=== PATIENT | female | born 1990 | race African-American/Black ===

== ENCOUNTER 2022-06-20 08:14 | Inpatient (IN) ==
[2022-06-20] MEDS ORDERED: OXYTOCIN 30 UNITS/500 ML BAG IV PRN ×3 (08:56→20:21)
[2022-06-20] MEDS ORDERED: LIDOCAINE 1% LOCAL 20 ML VIAL INFIL PRN (08:56)
--- NOTE | 2022-06-20 09:02 | History & Physical Report ---
Date of Service June 20, 2022 Assessment & Plan (1) Active labor at term: Plan: 32-year-old at 38 weeks and 6 days of gestation presenting in active labor with regular contractions, Vital signs stable afebrile, GBS negative, Gestational diabetes, prescribed metformin yesterday has not started that, Plan to admit, labs, monitor, epidural for pain, anticipate , All questions were answered. (2) GDM (gestational diabetes mellitus): History of Present Illness Primary Care Provider: Caio Oliveira MD Patient is a 32-year-old G1, P0 at 38 weeks and 6 days of gestation who has been feeling contractions since yesterday but they got more painful and regular since 6 AM. She denies leakage of fluid or vaginal bleeding. She reports good movements. Her has been complicated by gestational diabetes, it has been diet- controlled but she was prescribed metformin yesterday in the office. She has not started it. GBS negative and no other medical problems. Allergies Allergy/AdvReac Type Severity Reaction Status Date / Time No Known Allergies Allergy Unverified 06/07/22 14:04 Home Medications Medication Instructions Recorded Confirmed Type prenat.vits,hannah,hgb-lbyl-bsdbz 1 tab PO DAILY 06/07/22 06/20/22 History ferrous sulfate 325 mg (65 mg 325 mg PO BID 06/20/22 06/20/22 History iron) tablet (iron) Patient History Medical History Gestational diabetes diet controlled No known health problems Surgical History No history of previous surgery Family History Other Family history of diabetes mellitus in father Social History (Updated 06/07/22 @ 14:04 by Michelle Griffith RN) Smoking Status: Never smoker Hx Alcohol Use: No Hx Substance Use: No Preferred Language: Tunisian Creole Communication Ability: Impaired Communication Tools: Language Line Grant Writer Visual Impairment: No Limitations Beliefs That Will Affect Care: None marital status: Current Living Situation: Spouse Current Living Situation Comment: lives with family 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
[2022-06-20 09:30] LABS: Hematocrit (blood only) 35.6 % (37.0-47.0); Hemoglobin 11.7 g/dl (12.0-16.0); Mean Corpuscular Hemoglobin 28.8 pg (25.0-34.0); Mean Corpuscular Hgb Conc 32.9 g/dL (32.0-36.0); Mean Corpuscular Volume 87.7 fL (80.0-100.0); Platelet Count 260 K/uL (130-400); RDW Coefficient of Variation 16.1 % (11.5-14.5); RDW Standard Deviation 51.1 fL (36.4-46.3); Red Blood Count 4.06 M/uL (4.20-5.40); White Blood Count 5.79 K/ul (4.8-10.8)
[2022-06-20 09:39] LABS: Appearance Urine Clear (Clear); Bacteria Urine Automated Negative (Negative); Bilirubin Urine Negative (Negative); Blood Urine Negative (Negative); Color Urine Yellow; Epithelial Cell Urine Auto >30 /lpf (0-5); Glucose Urine UA Negative (Negative); Ketones Urine Trace (Negative); Leukocyte Esterase Urine Negative (Negative); Nitrite Urine Negative (Negative); Protein Urine Trace (Negative); RBC Urine Automated 0-4 /hpf (0-4); Specific Gravity Urine 1.018 (1.000-1.030); Urobilinogen Urine Negative (Negative)
[2022-06-20 09:45] LABS: Albumin Globulin Ratio 1.1 (0.9-2); Albumin Level 3.2 gm/dl (3.4-5.0); BUN Creatinine Ratio 11.3 (10-20); Bilirubin,Total 0.3 mg/dl (0.2-1.0); Calcium 8.6 mg/dl (8.6-10.3); Creatinine Clr Calc Pharmacy 179.2 ml/min; Est GFR (African American) 147.7 ml/min; Est GFR (Non-African American) 127.4 ml/min; Potassium 4.1 mmol/L (3.5-5.1); Total Protein 6.2 gm/dl (6.0-8.3)
[2022-06-20] MEDS: LACTATED RINGER'S 1,000 ML IV PRN ×3 (09:46→17:02)
[2022-06-20] MEDS ORDERED: SODIUM CHLORIDE 0.9% PF INJ 10 ML VIAL ONE (10:01)
[2022-06-20] MEDS ORDERED: fentaNYL citrate PF 100 MCG/2 ML VIAL ONE (10:01)
[2022-06-20] MEDS ORDERED: BUPIVACAINE 0.25% PF 30 ML VIAL ONE (10:02)
[2022-06-20] MEDS ORDERED: fentaNYL 2MCG/ML ROPIVACAINE 1.25MG/ML 100 ML BAG EPI ONE (10:02)
[2022-06-20] MEDS ORDERED: LIDOCAINE 2%/EPINEPHRINE 1:200,000 20 ML PF ONE (10:02)
[2022-06-20] MEDS ORDERED: ePHEDrine sulfate 50 MG/ML AMP ONE (10:03)
--- NOTE | 2022-06-20 10:23 | Anesthesiology Consultation ---
Date of Service June 20, 2022 Assessment & Plan (1) Encounter for pre-operative examination: Chart Review Chart Review: Acceptable Risk for Labor Epidural History Height/Weight Height: 5 ft 6.14 in Weight: 93.44 kg Allergies Allergy/AdvReac Type Severity Reaction Status Date / Time No Known Allergies Allergy Unverified 06/07/22 14:04 Medications Home Medications Medication Instructions Recorded Confirmed Last Taken prenat.vits,hannah,mki-hhkv-brxys 1 tab PO DAILY 06/07/22 06/20/22 06/19/22 12:00 ferrous sulfate 325 mg (65 mg 325 mg PO BID 06/20/22 06/20/22 06/19/22 12:00 iron) tablet (iron) Active Medications Generic Name Dose Route Start Last Admin Trade Name Freq PRN Reason Stop Dose Admin Lactated Ringer's 1,000 mls @ 150 mls/hr 06/20/22 08:56 06/20/22 09:46 Lr IV 06/22/22 08:55 999 mls/hr .[id number] PRN Administration L&D Protocol Protocol Past Medical History Medical History Gestational diabetes diet controlled No known health problems Past Family History Family History Other Family history of diabetes mellitus in father Past Surgical History Surgical History No history of previous surgery Social History Smoking Status: Never smoker Hx Alcohol Use: No Hx Substance Use: No Physical Exam Vital Signs Last Vital Signs Temp 36.4 C L 06/20/22 08:38 Pulse 88 06/20/22 10:19 Resp 20 06/20/22 08:38 BP 147/99 H 06/20/22 10:19 Testing Laboratory Results 06/20/22 09:13 06/20/22 09:13 Urine Color Yellow 06/20/22 Unknown Urine Appearance Clear (Clear) 06/20/22 Unknown Urine pH 7.0 (4.5-7.5) 06/20/22 Unknown Ur Specific [place] 1.018 (1.000-1.030) 06/20/22 Unknown Urine Protein Trace (Negative) H 06/20/22 Unknown Urine Glucose (UA) Negative (Negative) 06/20/22 Unknown Urine Ketones Trace (Negative) H 06/20/22 Unknown Urine Nitrite Negative (Negative) 06/20/22 Unknown Ur Leukocyte Esterase Negative (Negative) 06/20/22 Unknown Urine WBC (Auto) 1-5 /hpf (0-5) 06/20/22 Unknown Urine RBC (Auto) 0-4 /hpf (0-4) 06/20/22 Unknown U Hyaline Cast (Auto) 1-5 /lpf (0-5) 06/20/22 Unknown U Epithel Cells (Auto) >30 /lpf (0-5) H 06/20/22 Unknown Urine Bacteria (Auto) Negative (Negative) 06/20/22 Unknown
[2022-06-20] MEDS ORDERED: SODIUM CHLORIDE 0.9% PF INJ 10 ML VIAL EPI STA (11:03)
[2022-06-20] MEDS ORDERED: ONDANSETRON INJ 2 MG/ML 2 ML VIAL IV PRN (11:03)
[2022-06-20] MEDS ORDERED: BUPIVACAINE 0.25% PF 30 ML VIAL EPI STA (11:03)
[2022-06-20] MEDS ORDERED: fentaNYL citrate PF 100 MCG/2 ML VIAL EPI PRN (11:03)
[2022-06-20] MEDS ORDERED: LIDOCAINE 2%/EPINEPHRINE 1:200,000 20 ML PF EPI STA (11:03)
[2022-06-20] MEDS ORDERED: NALOXONE HCL 0.4 MG/1 ML VIAL/CARP IV PRN (11:03)
[2022-06-20] MEDS ORDERED: fentaNYL citrate PF 100 MCG/2 ML VIAL EPI STA (11:03)
[2022-06-20] MEDS ORDERED: ROPIVACAINE 0.5% PF 5 MG/ML 20 ML VIAL EPI PRN (11:03)
[2022-06-20] MEDS ORDERED: SODIUM CHLORIDE 0.9% PF INJ 10 ML VIAL EPI PRN (11:03)
[2022-06-20] MEDS ORDERED: NALOXONE HCL 1 MG in SODIUM CHLORIDE 0.9% 1000ML 1,000 ML IV PRN (11:03)
[2022-06-20] MEDS ORDERED: fentaNYL 2MCG/ML ROPIVACAINE 1.25MG/ML 100 ML BAG EPI PRN (11:03)
[2022-06-20] MEDS ORDERED: ePHEDrine sulfate 50 MG/ML AMP IV PRN (11:03)
[2022-06-20] MEDS ORDERED: BUPIVACAINE 0.25% PF 30 ML VIAL EPI PRN (11:03)
[2022-06-20] MEDS ORDERED: LIDOCAINE 2% MPF LOCAL 5 ML VIAL EPI PRN (11:03)
--- NOTE | 2022-06-20 16:11 | Obstetrical Progress Note ---
Date of Service June 20, 2022 Assessment & Plan Admission and Anticipated Discharge Date Admission Date: June 20, 2022 Subjective Patient is reevaluated ( using translation line) She has epidural for pain No complaints VE; 6/ 80%/-1, bulgin bag, AROM'ed after verbal consent , clear fluid FHR categ I [place] ctxs irregular and spaced out Plan to start Oxytocin for augmentation Continue to monitor closely Results & Data Vital Signs (Past 12 Hours) Vital Signs Temp Pulse Resp BP Pulse Ox 06/20/22 16:06 99 H 100 06/20/22 16:01 96 H 100 06/20/22 15:56 101 H 100 06/20/22 15:55 97 H 135/85 06/20/22 15:51 101 H 100 06/20/22 15:46 98 H 100 06/20/22 15:41 95 H 100 06/20/22 15:40 97 H 134/89 06/20/22 15:36 100 H 99 06/20/22 15:31 99 H 99 06/20/22 15:25 99 H 132/87 99 06/20/22 15:21 98 H 99 06/20/22 15:16 104 H 99 06/20/22 15:00 16 06/20/22 15:00 16 06/20/22 15:11 99 H 98 06/20/22 15:09 105 H 130/83 06/20/22 15:06 102 H 99 06/20/22 15:01 96 H 98 06/20/22 14:56 105 H 99 06/20/22 14:54 98 H 129/83 06/20/22 14:51 103 H 98 06/20/22 14:46 99 H 98 06/20/22 14:41 96 H 98 06/20/22 14:39 99 H 127/83 06/20/22 14:35 101 H 99 06/20/22 14:31 104 H 99 06/20/22 14:26 99 H 128/82 98 06/20/22 14:21 94 H 98 06/20/22 14:16 96 H 99 06/20/22 14:11 100 H 99 06/20/22 14:10 100 H 18 130/75 06/20/22 14:06 105 H 99 06/20/22 14:01 91 H 99 06/20/22 13:56 96 H 136/83 100 05/09/23 13:51 96 H 99 06/20/22 13:46 93 H 100 06/20/22 13:41 95 H 99 06/20/22 13:39 92 H 132/84 06/20/22 13:36 91 H 100 06/20/22 13:31 107 H 100 06/20/22 13:27 101 H 135/72 06/20/22 13:26 125 H 100 06/20/22 13:21 118 H 100 06/20/22 13:16 106 H 100 06/20/22 13:11 107 H 100 06/20/22 13:10 104 H 128/73 06/20/22 13:06 107 H 100 06/20/22 13:01 104 H 99 06/20/22 12:56 97 H 100 06/20/22 12:55 96 H 123/81 06/20/22 12:51 92 H 100 06/20/22 12:46 112 H 100 06/20/22 12:41 93 H 100 06/20/22 12:39 36.8 C 95 H 20 123/71 06/20/22 12:36 95 H 99 06/20/22 12:31 86 100 06/20/22 12:26 97 H 100 06/20/22 12:21 82 100 06/20/22 12:16 88 100 06/20/22 12:11 98 H 06/20/22 12:11 101 H 136/86 100 06/20/22 12:06 80 100 06/20/22 12:01 77 100 06/20/22 11:56 81 100 06/20/22 11:52 88 132/78 90 06/20/22 11:51 79 100 06/20/22 11:46 86 06/20/22 11:46 86 130/78 100 06/20/22 11:41 100 H 06/20/22 11:41 100 H 114/75 100 06/20/22 11:36 99 H 122/72 100 06/20/22 11:31 81 119/75 100 06/20/22 11:26 110 H 06/20/22 11:26 87 123/79 100 06/20/22 11:22 87 123/74 06/20/22 11:21 91 H 100 06/20/22 11:17 100 H 113/58 L 06/20/22 11:16 96 H 100 06/20/22 11:11 98 H 111/73 100 06/20/22 11:09 85 118/72 06/20/22 11:06 91 H 100 06/20/22 11:07 95 H 115/68 06/20/22 11:05 92 H 116/71 06/20/22 11:03 80 125/73 06/20/22 11:01 87 126/73 100 06/20/22 10:59 83 125/77 06/20/22 10:57 86 125/94 06/20/22 10:56 92 H 100 06/20/22 10:51 94 H 100 06/20/22 10:48 93 H 134/93 06/20/22 10:46 99 H 100 06/20/22 10:44 90 85 L 06/20/22 10:41 84 100 06/20/22 10:36 87 100 06/20/22 08:27 20 06/20/22 08:27 36.4 C L 20 06/20/22 10:19 88 147/99 H 06/20/22 10:04 91 H 128/85 06/20/22 09:48 83 137/88 06/20/22 09:18 83 135/90 06/20/22 09:03 78 138/93 06/20/22 08:48 79 132/93 06/20/22 08:29 83 129/91 06/20/22 08:38 36.4 C L 20
[2022-06-20] MEDS ORDERED: HYDROCORTISONE ACETATE 25 MG SUPP PR PRN (20:21)
[2022-06-20] MEDS ORDERED: ACETAMINOPHEN 325 MG TAB PO PRN (20:21)
[2022-06-20] MEDS ORDERED: MEASLES, MUMPS & RUBELLA VIRUS VIAL SQ ONE (20:21)
[2022-06-20] MEDS ORDERED: bisacodyL 10 MG SUPP PR PRN (20:21)
[2022-06-20] MEDS ORDERED: DIPHTHERIA/TETANUS/PERTUSSIS 0.5mL SYR/VIAL (Age 7+yrs) IM ONE (20:21)
[2022-06-20] MEDS ORDERED: oxyCODONE/ACETAMINOPHEN 5mg/325mg TAB PO PRN (20:21)
[2022-06-20] MEDS ORDERED: BENZOCAINE 20% AER SPR 82.5 GM CAN EXT PRN (20:21)
--- NOTE | 2022-06-20 20:25 | Delivery Summary ---
Vaginal Delivery Summary Date of Service June 20, 2022 Vaginal Delivery Summary Patient was found to be fully dilated and desire to push. She pushed for about half an hour and delivered the head without difficulty. The shoulders were delivered with minimal traction, and the whole body without difficulty. The baby was handed to the mother, mouth and nose were suctioned, cord was clamped x2 and cut at 2.5-minute delay per patient request. The baby was vigorously moving and crying at that point. Then the vagina and perineum were checked for lacerations. There was a small second-degree laceration at 7 o'clock position at the hymen. It was repaired with 2-0 Vicryl in a running locked fashion bringing the mucosa together, muscles together and skin in a subcuticular fashion. Then the first-degree lacerations on both side of upper labia were repaired with 0 Vicryl on a SH needle with [id number] stitches x2. Excellent hemostasis was achieved. Placenta was delivered spontaneously as intact and complete. Uterus was explored and found to be empty and the lower segment was cleared of all clots and debris, fundus was firm and EBL was 200 mL. The mom and baby tolerated procedure well. Sponge needle instrument count was correct x2. The baby was a viable female , Apgars 8/9 and weight is pending. No complications happened and I was present during whole procedure.
--- NOTE | 2022-06-20 21:32 | Anesthesia Procedure Note ---
Date of Service June 20, 2022 Anesthesia Post Epidural Note Vital Signs Vital Signs: Temp Pulse Resp BP Pulse Ox 36.6 C 102 H 20 129/70 100 06/20/22 17:55 06/20/22 21:27 06/20/22 17:55 06/20/22 21:26 06/20/22 21:27 Pain Intensity Bilateral Abdomen: Pain Intensity: 4 Notes Mental Status: alert / awake / arousable and participated in evaluation Nausea / Vomiting: adequately controlled Pain: adequately controlled Airway Patency, RR, SpO2: stable & adequate BP & HR: stable & adequate Hydration State: stable & adequate Neuraxial Anesthesia: was administered and sensory block is resolving Anesthetic Complications: no major complications apparent Epidural: Removed without complications and With tip intact
[2022-06-20] MEDS: IBUPROFEN 600 MG TAB PO PRN (22:19)
[2022-06-21] MEDS: DOCUSATE SODIUM 100 MG CAP PO SCH ×3 (00:47→21:08)
[2022-06-21 06:23] LABS: Hematocrit (blood only) 28.8 % (37.0-47.0); Hemoglobin 9.4 g/dl (12.0-16.0); Mean Corpuscular Hemoglobin 28.7 pg (25.0-34.0); Mean Corpuscular Hgb Conc 32.6 g/dL (32.0-36.0); Mean Corpuscular Volume 87.8 fL (80.0-100.0); Mean Platelet Volume 12.2 fL (9.4-12.4); Platelet Count 219 K/uL (130-400); RDW Standard Deviation 51.1 fL (36.4-46.3); Red Blood Count 3.28 M/uL (4.20-5.40)
[2022-06-21] MEDS: FERROUS SULFATE 325 MG TAB PO SCH (07:48)
[2022-06-21] MEDS: PRENATAL VITAMIN 1 TAB PO SCH (07:49)
[2022-06-21] MEDS: IBUPROFEN 600 MG TAB PO PRN ×3 (07:49→21:08)
--- NOTE | 2022-06-21 08:12 | Obstetrical Progress Note ---
Date of Service June 21, 2022 Assessment & Plan (1) Normal course: Continue routine PP course Anticipate d/c home tomorrow (2) Anemia affecting : Subjective Ambulation: ambulating normally Voiding: no voiding problems Passing Gas:: Yes Diet Tolerance:: regular diet Lochia:: Small Feeding Type:: breast feeding Current Pain Level(1-10): 2 Doing well, no complaints at this time Physical Exam Constitutional WD/WN, vitals as above Respiratory normal respiratory effort, lungs clear to auscultation Cardiovascular RRR, no murmur, no edema Gastrointestinal (Abdomen) normal bowel sounds, soft, nontender, no hepatosplenomegaly fundus below U Results & Data Vital Signs (Past 12 Hours) Vital Signs Temp Pulse Pulse Resp BP BP Pulse Ox 06/21/22 02:49 36.9 C 89 16 109/66 06/20/22 23:30 37.0 C 88 18 136/91 06/20/22 20:25 36.6 C 06/20/22 22:12 95 H 143/81 H 06/20/22 21:56 85 124/66 06/20/22 21:42 93 H 99 06/20/22 21:41 106 H 126/65 06/20/22 21:37 111 H 98 06/20/22 21:32 113 H 100 06/20/22 21:27 102 H 100 06/20/22 21:26 103 H 129/70 06/20/22 21:22 107 H 99 06/20/22 21:17 103 H 100 06/20/22 21:12 107 H 100 06/20/22 21:11 104 H 127/71 06/20/22 21:07 108 H 100 06/20/22 21:02 105 H 100 06/20/22 20:57 100 H 100 06/20/22 20:56 98 H 133/76 06/20/22 20:52 95 H 100 06/20/22 20:47 96 H 100 06/20/22 20:42 94 H 100 06/20/22 20:41 98 H 135/87 06/20/22 20:37 98 H 100 06/20/22 20:32 94 H 99 06/20/22 20:27 98 H 100 06/20/22 20:25 107 H 134/88 06/20/22 20:22 100 H 100 06/20/22 20:17 104 H 100 06/20/22 20:12 101 H 100 O2 Del Method 06/21/22 02:49 Room Air 06/20/22 23:30 Room Air 06/20/22 20:25 06/20/22 22:12 06/20/22 21:56 06/20/22 21:42 06/20/22 21:41 06/20/22 21:37 06/20/22 21:32 06/20/22 21:27 06/20/22 21:26 06/20/22 21:22 06/20/22 21:17 06/20/22 21:12 06/20/22 21:11 06/20/22 21:07 06/20/22 21:02 06/20/22 20:57 06/20/22 20:56 06/20/22 20:52 06/20/22 20:47 06/20/22 20:42 06/20/22 20:41 06/20/22 20:37 06/20/22 20:32 06/20/22 20:27 06/20/22 20:25 06/20/22 20:22 06/20/22 20:17 06/20/22 20:12 Laboratory Results Laboratory Results WBC 13.80 K/ul (4.8-10.8) H 06/21/22 06:03 RBC 3.28 M/uL (4.20-5.40) L 06/21/22 06:03 Hgb 9.4 g/dl (12.0-16.0) L 06/21/22 06:03 Hct 28.8 % (37.0-47.0) L 06/21/22 06:03 MCV 87.8 fL (80.0-100.0) 06/21/22 06:03 MCH 28.7 pg (25.0-34.0) 06/21/22 06:03 MCHC 32.6 g/dL (32.0-36.0) 06/21/22 06:03 RDW Std Deviation 51.1 fL (36.4-46.3) H 06/21/22 06:03 RDW Coeff of [place]mer[place] 16.0 % (11.5-14.5) H 06/21/22 06:03 Plt Count 219 K/uL (130-400) 06/21/22 06:03 MPV 12.2 fL (9.4-12.4) 06/21/22 06:03 Sodium 135 mmol/L (136-145) L 06/20/22 09:13 Potassium 4.1 mmol/L (3.5-5.1) 06/20/22 09:13 Chloride 107 mmol/L (98-107) 06/20/22 09:13 Carbon Dioxide 19 mmol/L (21-32) L 06/20/22 09:13 Anion Gap 9 (3-11) 06/20/22 09:13 BUN 6 mg/dl (6-23) 06/20/22 09:13 Creatinine 0.53 mg/dl (0.6-1.2) L 06/20/22 09:13 Est Cr Clr Drug Dosing 179.2 ml/min 06/20/22 09:13 Est GFR ( Amer) 147.7 ml/min 06/20/22 09:13 Est GFR (Non-Af Amer) 127.4 ml/min 06/20/22 09:13 BUN/Creatinine Ratio 11.3 (10-20) 06/20/22 09:13 Glucose 98 mg/dl (70-99(Fasting)) 06/20/22 09:13 Calcium 8.6 mg/dl (8.6-10.3) 06/20/22 09:13 Total Bilirubin 0.3 mg/dl (0.2-1.0) 06/20/22 09:13 AST 21 U/L (13-39) 06/20/22 09:13 ALT 23 U/L (7-52) 06/20/22 09:13 Alkaline Phosphatase 140 U/L (34-104) H 06/20/22 09:13 Total Protein 6.2 gm/dl (6.0-8.3) 06/20/22 09:13 Albumin 3.2 gm/dl (3.4-5.0) L 06/20/22 09:13 Globulin 3.0 gm/dl (2.5-4.0) 06/20/22 09:13 Albumin/Globulin Ratio 1.1 (0.9-2) 06/20/22 09:13 Urine Color Yellow 06/20/22 Unknown Urine Appearance Clear (Clear) 06/20/22 Unknown Urine pH 7.0 (4.5-7.5) 06/20/22 Unknown Ur Specific [place] 1.018 (1.000-1.030) 06/20/22 Unknown Urine Protein Trace (Negative) H 06/20/22 Unknown Urine Glucose (UA) Negative (Negative) 06/20/22 Unknown Urine Ketones Trace (Negative) H 06/20/22 Unknown Urine Blood Negative (Negative) 06/20/22 Unknown Urine Nitrite Negative (Negative) 06/20/22 Unknown Urine Bilirubin Negative (Negative) 06/20/22 Unknown Urine Urobilinogen Negative (Negative) 06/20/22 Unknown Ur Leukocyte Esterase Negative (Negative) 06/20/22 Unknown Urine WBC (Auto) 1-5 /hpf (0-5) 06/20/22 Unknown Urine RBC (Auto) 0-4 /hpf (0-4) 06/20/22 Unknown U Hyaline Cast (Auto) 1-5 /lpf (0-5) 06/20/22 Unknown U Epithel Cells (Auto) >30 /lpf (0-5) H 06/20/22 Unknown Urine Bacteria (Auto) Negative (Negative) 06/20/22 Unknown SARS-CoV-2, RNA, NAAT NEGATIVE (NEGATIVE) 06/20/22 09:00
[2022-06-21] MEDS ORDERED: bisacodyL 5 MG TABEC PO SCH (20:00)
[2022-06-22 06:45] LABS: Hematocrit (blood only) 30.3 % (37.0-47.0); Hemoglobin 9.8 g/dl (12.0-16.0)
[2022-06-22] MEDS: FERROUS SULFATE 325 MG TAB PO SCH (08:00)
[2022-06-22] MEDS: IBUPROFEN 600 MG TAB PO PRN (08:00)
[2022-06-22] MEDS: PRENATAL VITAMIN 1 TAB PO SCH (08:00)
[2022-06-22] MEDS: DOCUSATE SODIUM 100 MG CAP PO SCH (08:00)
[2022-06-22] MEDS ORDERED: MAGNESIUM HYDROXIDE SUSP 30 ML UDC PO ONE (08:54)
[2022-06-22] MEDS ORDERED: HYDROCORTISONE HC 2.5% CRM 30GM TUBE EXT PRN (08:54)
--- NOTE | 2022-06-22 08:59 | Obstetrical Progress Note ---
Date of Service June 22, 2022 Assessment & Plan Admission and Anticipated Discharge Date Admission Date: June 20, 2022 Subjective Patient is seen and examined. She complains of uterine cramping, soreness in vagina where the sutures are and constipation. Ambulating without dizziness. Voiding without difficulty Tolerating regular diet with out N&V Bleeding is minimal No fever/ chills/ CP/ SOB/ N&V/ Leg pain Breast and bottle feeding without problems. Vital Signs Temp Pulse Pulse Resp BP Pulse Ox O2 Del Method 06/22/22 05:00 36.6 C 86 18 128/90 Room Air 06/21/22 21:17 36.5 C 82 18 124/89 100 Room Air 06/21/22 16:20 36.8 C 91 H 18 149/81 H Room Air 06/21/22 12:17 36.9 C 89 18 127/76 97 Room Air Lab Results 06/20/22 06/20/22 06/20/22 Range/Units 09:00 09:13 09:13 WBC 5.79 (4.8-10.8) K/ul RBC 4.06 L (4.20-5.40) M/uL Hgb 11.7 L (12.0-16.0) g/dl Hct 35.6 L (37.0-47.0) % MCV 87.7 (80.0-100.0) fL MCH 28.8 (25.0-34.0) pg MCHC 32.9 (32.0-36.0) g/dL RDW Std Deviation 51.1 H (36.4-46.3) fL RDW Coeff of Rosmery 16.1 H (11.5-14.5) % Plt Count 260 (130-400) K/uL MPV 12.0 (9.4-12.4) fL Sodium 135 L (136-145) mmol/L Potassium 4.1 (3.5-5.1) mmol/L Chloride 107 (98-107) mmol/L Carbon Dioxide 19 L (21-32) mmol/L Anion Gap 9 (3-11) BUN 6 (6-23) mg/dl Creatinine 0.53 L (0.6-1.2) mg/dl Est Cr Clr Drug Dosing 179.2 ml/min Est GFR ( Amer) 147.7 ml/min Est GFR (Non-Af Amer) 127.4 ml/min BUN/Creatinine Ratio 11.3 (10-20) Glucose 98 (70-99(Fasting)) mg/dl Calcium 8.6 (8.6-10.3) mg/dl Total Bilirubin 0.3 (0.2-1.0) mg/dl AST 21 (13-39) U/L ALT 23 (7-52) U/L Alkaline Phosphatase 140 H (34-104) U/L Total Protein 6.2 (6.0-8.3) gm/dl Albumin 3.2 L (3.4-5.0) gm/dl Globulin 3.0 (2.5-4.0) gm/dl Albumin/Globulin Ratio 1.1 (0.9-2) Urine Color Urine Appearance (Clear) Urine pH (4.5-7.5) Ur Specific [place] (1.000-1.030) Urine Protein (Negative) Urine Glucose (UA) (Negative) Urine Ketones (Negative) Urine Blood (Negative) Urine Nitrite (Negative) Urine Bilirubin (Negative) Urine Urobilinogen (Negative) Ur Leukocyte Esterase (Negative) Urine WBC (Auto) (0-5) /hpf Urine RBC (Auto) (0-4) /hpf U Hyaline Cast (Auto) (0-5) /lpf U Epithel Cells (Auto) (0-5) /lpf Urine Bacteria (Auto) (Negative) SARS-CoV-2, RNA, NAAT NEGATIVE (NEGATIVE) 06/20/22 06/21/22 06/22/22 Range/Units Unknown 06:03 06:22 WBC 13.80 H (4.8-10.8) K/ul RBC 3.28 L (4.20-5.40) M/uL Hgb 9.4 L 9.8 L (12.0-16.0) g/dl Hct 28.8 L 30.3 L (37.0-47.0) % MCV 87.8 (80.0-100.0) fL MCH 28.7 (25.0-34.0) pg MCHC 32.6 (32.0-36.0) g/dL RDW Std Deviation 51.1 H (36.4-46.3) fL RDW Coeff of Rosmery 16.0 H (11.5-14.5) % Plt Count 219 (130-400) K/uL MPV 12.2 (9.4-12.4) fL Sodium (136-145) mmol/L Potassium (3.5-5.1) mmol/L Chloride (98-107) mmol/L Carbon Dioxide (21-32) mmol/L Anion Gap (3-11) BUN (6-23) mg/dl Creatinine (0.6-1.2) mg/dl Est Cr Clr Drug Dosing ml/min Est GFR ( Amer) ml/min Est GFR (Non-Af Amer) ml/min BUN/Creatinine Ratio (10-20) Glucose (70-99(Fasting)) mg/dl Calcium (8.6-10.3) mg/dl Total Bilirubin (0.2-1.0) mg/dl AST (13-39) U/L ALT (7-52) U/L Alkaline Phosphatase (34-104) U/L Total Protein (6.0-8.3) gm/dl Albumin (3.4-5.0) gm/dl Globulin (2.5-4.0) gm/dl Albumin/Globulin Ratio (0.9-2) Urine Color Yellow Urine Appearance Clear (Clear) Urine pH 7.0 (4.5-7.5) Ur Specific [place] 1.018 (1.000-1.030) Urine Protein Trace H (Negative) Urine Glucose (UA) Negative (Negative) Urine Ketones Trace H (Negative) Urine Blood Negative (Negative) Urine Nitrite Negative (Negative) Urine Bilirubin Negative (Negative) Urine Urobilinogen Negative (Negative) Ur Leukocyte Esterase Negative (Negative) Urine WBC (Auto) 1-5 (0-5) /hpf Urine RBC (Auto) 0-4 (0-4) /hpf U Hyaline Cast (Auto) 1-5 (0-5) /lpf U Epithel Cells (Auto) >30 H (0-5) /lpf Urine Bacteria (Auto) Negative (Negative) SARS-CoV-2, RNA, NAAT (NEGATIVE) PE: General: Alert, orientedx3, NAD Abd: soft, NT, fundus firm, below Umbilicus Perineum intact, Lochia rubra minimal, sutures appear normal Ext; NT, no edema AP: 32 yo s/p , ppd# 2 VSS Afebrile doing well MOM for constipation Continue routine care All questions were answered D/C home when baby will be discharged. Results & Data Vital Signs (Past 12 Hours) Vital Signs Temp Pulse Resp BP Pulse Ox O2 Del Method 06/22/22 05:00 36.6 C 86 18 128/90 Room Air 06/21/22 21:17 36.5 C 82 18 124/89 100 Room Air
== END 2022-06-22 16:04 | disposition home or self-care (01) | DRG 807 ==
LOC: OPB 08:14 → 4S1 08:15 → 4E2 23:25

== ENCOUNTER 2022-06-27 16:42 | Inpatient (IN) ==
--- NOTE | 2022-06-27 17:15 | Emergency Department Note ---
Impression & Plan Shortness of breath, Leg swelling, Pleural effusion, HTN (hypertension) ED Provider Note NAME: CHRISTIAN RUEDA AGE: 32 SEX: F : 1990 ARRIVES VIA: Walk-In INFORMANT: Patient ED PROVIDER(S): Anatoly Lyn DO CHIEF COMPLAINT: leg pain HPI: Patient is a 32-year-old female who presents to the ER who delivered on the of this month. Patient notes that this Sunday she started having swelling of her left calf. She went and saw [facility] and had an ultrasound/dup peyton done which was unremarkable. They spoke with HIM SPECIALIST as well as cardiology patient was referred in for work-up here. She denies any chest pain or exertional shortness of breath but gets short of breath only when she lays on her left side. Denies any belly pain, nausea, vomiting, or diarrhea. Vaginal bleeding has improved significantly. She has no headache or change in vision. PAST MEDICAL HISTORY:See Below PAST SURGICAL HISTORY:See Below FAMILY HISTORY:See Below SOCIAL HISTORY:See Below HOME MEDICATIONS:See Below ALLERGIES:See Below VITALS:See Below PHYSICAL EXAMINATION: GENERAL: Sitting up in bed, alert, well appearing, well nourished, no distress, non-toxic EYE EXAM: normal conjunctiva. OROPHARYNX: no exudate, no erythema, lips, buccal mucosa, and tongue normal and mucous membranes are moist NECK: supple, no nuchal rigidity, no adenopathy, non-tender LUNGS: Clear to auscultation. Normal chest wall mechanics HEART: no murmurs, S1 normal and S2 normal ABDOMEN: abdomen soft, non-tender, normo-active bowel sounds, no masses, no rebound or guarding. SKIN: no rashes and no bruising UPPER EXTREMITIES: upper extremities are grossly normal. LOWER EXTREMITIES: Left calf slightly larger than right NEURO EXAM: Normal sensorium, cranial nerves II-XII grossly intact, normal speech, no gross weakness of arms, no gross weakness of legs. MEDICAL DECISION MAKING: Patient is a 32-year-old female who presents ER for above-stated complaint. IV was established blood work was obtained. External records were reviewed from [facility]. Labs show no significant leukocytosis. Mild anemia 10. D-dimer was elevated. BMP along with LFTs was remarkable for an AST of 51 and ALT of 131. This is new from previous. Troponin negative. Lipase negative. COVID- negative. UA not yet obtained. She denies any headache or change in vision or blurry vision. CT angio of the chest showed small pleural effusions. EKG had T wave inversions in V1 through V3. Discussed with cardiology and they will perform echo in AM. Discussed with the patient and she was agreeable to staying and patient was admitted to HIM SPECIALIST service Dr. Fowler with concern for possible preeclampsia in the setting of hypertension, and a mild transaminitis. Patient was given hydralazine 5 mg IV as systolics were in the 170s with a heart rate in the 50s. Currently holding on magnesium and will defer to OB as they are coming to evaluate the patient to admit them. Triage Nursing notes reviewed. Limited review of prior medical records performed Vital Signs: reviewed and remarkable for HTN Differential diagnosis: Differential diagnoses includes but is not limited to pneumonia, bronchitis, COPD/Asthma exacerbation, pneumothorax, pulmonary embolism, congestive heart failure, acute coronary syndrome ER treatment provided: See below Diagnostics interpreted by me include EKG and cardiac monitoring as listed below: -Cardiac Monitoring: An order was placed for continuous cardiac monitoring. The monitor shows a rate of 60 with sinus rhythm. -ECG: Sinus rhythm rate 63 Normal axis T wave inversion V1 through V3 QTc 419 No old to compare to -Laboratory studies:Interpreted by me as stated above in MDM and shown below. Imaging studies: Xrays: As interpreted by me: Portable AP upright 1 view of the chest shows no focal infiltrate CT angio of the chest shows small pleural effusions Consultation(s): Discussed with cardiology in regards to presentation EKG may agree with echo in the morning. Discussed with Dr. Fowler in regards to admission and further management and work-up of possible preeclampsia. Procedures:none Critical Care: None Past Med/Surg History Medical History Gestational diabetes diet controlled No known health problems Surgical History No history of previous surgery Family History Other Family history of diabetes mellitus in father Social History (Updated 06/07/22 @ 14:04 by Michelle Griffith RN) Smoking Status: Never smoker Hx Alcohol Use: No Hx Substance Use: No Preferred Language: Other Communication Ability: Impaired Communication Tools: Language Line Rug Touch Up Painter Visual Impairment: No Limitations Rug Touch Up Painter Required: Yes Beliefs That Will Affect Care: None marital status: Current Living Situation: Spouse and Family Current Living Situation Comment: lives with family Feels Safe at Home: Yes Diet: diabetic Assistive Devices: None Allergies Allergies Allergy/AdvReac Type Severity Reaction Status Date / Time No Known Allergies Allergy Unverified 06/27/22 17:08 Home Meds Previous Rx's Medication Instructions Recorded acetaminophen 325 mg tablet 650 mg PO Q6H #60 tabs 06/22/22 docusate sodium 100 mg capsule 100 mg PO DAILY@08,21 #60 caps 06/22/22 hydrocortisone 2.5 % topical cream 1 applic EXT Q8 PRN hemorrhoids 06/22/22 with perineal applicator #30 grams (Proctosol HC) ibuprofen 600 mg tablet 600 mg PO Q6 #40 tabs 06/22/22 vits no.124-ferrous fum 1 tab PO DAILY@08 #90 tabs 06/22/22 27 mg iron-folic acid 800 mcg tablet ( Vitamin) Results & Data (ED) Vital Signs Vital Signs - 24 hr 06/27/22 16:45 06/27/22 17:37 06/27/22 19:07 Temperature 36.8 C Temperature Source Temporal Artery Scan Pulse Rate 64 68 Pulse Rate [Apical] 60 Pulse Rhythm [Apical] Regular Pulse Strength [Apical] Normal Respiratory Rate 20 28 H Respiratory Effort / Characteristics Non-Labored Spontaneous Non-Labored Spontaneous Respiratory Depth Normal Respiratory Pattern Regular Blood Pressure 148/95 H Blood Pressure [Right Arm] 172/102 H Blood Pressure Mean 112 Blood Pressure Mean [Right Arm] 125 Blood Pressure Position Sitting Blood Pressure Position [Right Arm] Semi-fowlers Pulse Oximetry 99 98 Oxygen Delivery Method Room Air Room Air Sepsis Recent Fever Within 48 Hours No Sepsis New/Unexplained Change in Mental Status No Sepsis Action Taken by Nursing No Action Required 06/27/22 22:01 Temperature Temperature Source Pulse Rate Pulse Rate [Apical] 59 L Pulse Rhythm [Apical] Pulse Strength [Apical] Respiratory Rate Respiratory Effort / Characteristics Respiratory Depth Respiratory Pattern Blood Pressure Blood Pressure [Right Arm] 174/104 H Blood Pressure Mean Blood Pressure Mean [Right Arm] 127 Blood Pressure Position Blood Pressure Position [Right Arm] Semi-fowlers Pulse Oximetry 98 Oxygen Delivery Method Sepsis Recent Fever Within 48 Hours Sepsis New/Unexplained Change in Mental Status Sepsis Action Taken by Nursing Laboratory Data 06/27/22 17:18 06/27/22 17:18 Lab Results 06/27/22 06/27/22 06/27/22 Range/Units 17:18 17:18 17:18 WBC 6.92 (4.8-10.8) K/ul RBC 3.85 L (4.20-5.40) M/uL Hgb 10.9 L (12.0-16.0) g/dl Hct 34.2 L (37.0-47.0) % MCV 88.8 (80.0-100.0) fL MCH 28.3 (25.0-34.0) pg MCHC 31.9 L (32.0-36.0) g/dL RDW Std Deviation 54.6 H (36.4-46.3) fL RDW Coeff of Rosmery 17.0 H (11.5-14.5) % Plt Count 363 (130-400) K/uL MPV 11.1 (9.4-12.4) fL Immature Gran % (Auto) 0.3 % Neut % (Auto) 60.7 % Lymph % (Auto) 29.3 % [place] % (Auto) 8.7 % Eos % (Auto) 0.9 % Baso % (Auto) 0.1 % Neut # (Auto) 4.20 (1.40-6.50) K/uL Lymph # (Auto) 2.03 (1.2-3.4) K/uL [place] # (Auto) 0.60 H (0.11-0.59) K/uL Eos # (Auto) 0.06 (0-0.50) K/uL Baso # (Auto) 0.01 (0-0.2) K/uL Immature Gran # (Auto) 0.02 (0.01-0.20) K/uL D-Dimer 4450 H* (0-500) ug/L FEU Sodium 142 (136-145) mmol/L Potassium 4.2 (3.5-5.1) mmol/L Chloride 113 H (98-107) mmol/L Carbon Dioxide 22 (21-32) mmol/L Anion Gap 7 (3-11) BUN 10 (6-23) mg/dl Creatinine 0.58 L (0.6-1.2) mg/dl Est Cr Clr Drug Dosing Not Reportable Est GFR ( Amer) 143.4 ml/min Est GFR (Non-Af Amer) 123.7 ml/min BUN/Creatinine Ratio 17.2 (10-20) Glucose 105 H (70-99(Fasting)) mg/dl Calcium 8.7 (8.6-10.3) mg/dl Total Bilirubin 0.2 (0.2-1.0) mg/dl AST 51 H (13-39) U/L ALT 131 H (7-52) U/L Alkaline Phosphatase 131 H (34-104) U/L Troponin I High Sens 6.5 (0-14) pg/ml Total Protein 6.1 (6.0-8.3) gm/dl Albumin 3.3 L (3.4-5.0) gm/dl Globulin 2.8 (2.5-4.0) gm/dl Albumin/Globulin Ratio 1.2 (0.9-2) Lipase 15 (11-82) U/L SARS-CoV-2, RNA, NAAT (NEGATIVE) 06/27/22 Range/Units 21:59 WBC (4.8-10.8) K/ul RBC (4.20-5.40) M/uL Hgb (12.0-16.0) g/dl Hct (37.0-47.0) % MCV (80.0-100.0) fL MCH (25.0-34.0) pg MCHC (32.0-36.0) g/dL RDW Std Deviation (36.4-46.3) fL RDW Coeff of Rosmery (11.5-14.5) % Plt Count (130-400) K/uL MPV (9.4-12.4) fL Immature Gran % (Auto) % Neut % (Auto) % Lymph % (Auto) % [place] % (Auto) % Eos % (Auto) % Baso % (Auto) % Neut # (Auto) (1.40-6.50) K/uL Lymph # (Auto) (1.2-3.4) K/uL [place] # (Auto) (0.11-0.59) K/uL Eos # (Auto) (0-0.50) K/uL Baso # (Auto) (0-0.2) K/uL Immature Gran # (Auto) (0.01-0.20) K/uL D-Dimer (0-500) ug/L FEU Sodium (136-145) mmol/L Potassium (3.5-5.1) mmol/L Chloride (98-107) mmol/L Carbon Dioxide (21-32) mmol/L Anion Gap (3-11) BUN (6-23) mg/dl Creatinine (0.6-1.2) mg/dl Est Cr Clr Drug Dosing Est GFR ( Amer) ml/min Est GFR (Non-Af Amer) ml/min BUN/Creatinine Ratio (10-20) Glucose (70-99(Fasting)) mg/dl Calcium (8.6-10.3) mg/dl Total Bilirubin (0.2-1.0) mg/dl AST (13-39) U/L ALT (7-52) U/L Alkaline Phosphatase (34-104) U/L Troponin I High Sens (0-14) pg/ml Total Protein (6.0-8.3) gm/dl Albumin (3.4-5.0) gm/dl Globulin (2.5-4.0) gm/dl Albumin/Globulin Ratio (0.9-2) Lipase (11-82) U/L SARS-CoV-2, RNA, NAAT NEGATIVE (NEGATIVE) Administered Medications Discontinued Medications Hydralazine HCl (Hydralazine Hcl 20 Mg/Ml Vial) 5 mg IV NOW ONE Stop: 06/27/22 21:51 Last Admin: 06/27/22 22:06 Dose: 5 mg Documented By: AB Ioversol (Optiray 320 500ml) 115 ml IV ONCE ONE Stop: 06/27/22 20:25 Last Admin: 06/27/22 20:15 Dose: 115 ml Documented By: Imaging Data Radiologist's Impression: Chest X-Ray 06/27/22 17:02 SINGLE VIEW CHEST CLINICAL HISTORY: Atypical chest pain. FINDINGS: An AP, portable, upright chest radiograph is obtained. No prior studies are available for comparison at the time of dictation. The cardiomediastinal silhouette is unremarkable. The lungs and pleural spaces are clear. No pneumothorax is seen. The bony thorax is grossly intact. IMPRESSION: No active disease in the chest. ACT 112: Negative or not required by law. Electronically signed by: Vinayak Bosch M.D. 06/27/2022 5:35 PM Chest CTA 06/27/22 19:11 Exam(s): CTA CHEST IV Amt: 115 mL EXAM: CT Angiography Chest With Intravenous Contrast CLINICAL HISTORY: Reason for exam: PE. TECHNIQUE: Axial computed tomographic angiography images of the chest with intravenous contrast. CTDI is 24.57 mGy and DLP is 688.88 mGy-cm. Automated exposure control was utilized for the study. A dose lowering technique was utilized adhering to the principles of ALARA. MIP reconstructed images were created and reviewed. COMPARISON: No relevant prior studies available. FINDINGS: Pulmonary arteries: Unremarkable. No acute pulmonary embolism. Aorta: No acute findings. No thoracic aortic aneurysm. Lungs: Unremarkable. No mass. No consolidation. Pleural space: Trace bilateral pleural effusions. Mildly prominent heart size. No pericardial effusion. Correlate for congestive heart failure. No pneumothorax. Heart: Unremarkable. No cardiomegaly. No significant pericardial effusion. No evidence of RV dysfunction. Thyroid: Enlarged thyroid gland, which should be correlated with thyroid ultrasound. Bones/joints: No acute fracture. No dislocation. Soft tissues: Unremarkable. Lymph nodes: Unremarkable. No enlarged lymph nodes. IMPRESSION: 1. No acute pulmonary embolism. 2. Trace bilateral pleural effusions. Mildly prominent heart size. No pericardial effusion. Correlate for congestive heart failure. 3. Enlarged thyroid gland, which should be correlated with thyroid ultrasound. Electronically signed by: Francisco Javier Eller MD 06/27/22 21:01 PM Discharge Plan Visit Data Chief Complaint: Referred by Doctor Stated Complaint: REF BY DOC,FOOT SWOLLEN,OUT BREATH ED Provider: Anatoly Lyn Discharge Problem: Shortness of breath, Leg swelling, Pleural effusion, HTN (hypertension) Forms Stand Alone Forms: My [facility] [employer] Prescriptions Prescriptions: No Action acetaminophen 325 mg Tablet 650 mg PO Q6H Qty: 60 0RF docusate sodium 100 mg Capsule 100 mg PO DAILY@, Qty: 60 0RF ibuprofen 600 mg Tablet 600 mg PO Q6 Qty: 40 0RF Vitamin 27 mg iron- 800 mcg Tablet 1 tab PO DAILY@08 Qty: 90 0RF hydrocortisone [Proctosol HC] 2.5 % Cream With Perineal Applicator 1 applic EXT Q8 PRN (Reason: hemorrhoids) Qty: 30 2RF Referrals Referrals: Caio Oliveira MD [Primary Care Provider] -
--- NOTE | 2022-06-27 17:37 | XRay Report ---
SINGLE VIEW CHEST CLINICAL HISTORY: Atypical chest pain. FINDINGS: An AP, portable, upright chest radiograph is obtained. No prior studies are available for c omparison at the time of dictation. The cardiomediastinal silhouette is unremarkable. The lungs and p leural spaces are clear. No pneumothorax is seen. The bony thorax is grossly intact. IMPRESSION: No active disease in the chest. ACT 112: Negative or not required by law. Electronically signed by: Vinayak Bosch M.D. 06/27/2022 5:35 PM
[2022-06-27 17:51] LABS: Basophils # (auto) 0.01 K/uL (0-0.2); Basophils % (auto) 0.1 %; Eosinophils # (auto) 0.06 K/uL (0-0.50); Eosinophils % (auto) 0.9 %; Hematocrit (blood only) 34.2 % (37.0-47.0); Hemoglobin 10.9 g/dl (12.0-16.0); Immature Granulocytes # (auto) 0.02 K/uL (0.01-0.20); Immature Granulocytes % (auto) 0.3 %; Lymphocytes # (auto) 2.03 K/uL (1.2-3.4); Lymphocytes % (auto) 29.3 %; Mean Corpuscular Hemoglobin 28.3 pg (25.0-34.0); Mean Corpuscular Hgb Conc 31.9 g/dL (32.0-36.0); Mean Corpuscular Volume 88.8 fL (80.0-100.0); Mean Platelet Volume 11.1 fL (9.4-12.4); Monocytes % (auto) 8.7 %; Neutrophils % (auto) 60.7 %; Platelet Count 363 K/uL (130-400); RDW Standard Deviation 54.6 fL (36.4-46.3); Red Blood Count 3.85 M/uL (4.20-5.40); White Blood Count 6.92 K/ul (4.8-10.8)
[2022-06-27 18:12] LABS: Alanine Aminotransferase 131 U/L (7-52); Albumin Globulin Ratio 1.2 (0.9-2); Albumin Level 3.3 gm/dl (3.4-5.0); Alkaline Phosphatase 131 U/L (34-104); Anion Gap 7 (3-11); Aspartate Aminotransferase 51 U/L (13-39); BUN Creatinine Ratio 17.2 (10-20); Bilirubin,Total 0.2 mg/dl (0.2-1.0); Blood Urea Nitrogen 10 mg/dl (6-23); Calcium 8.7 mg/dl (8.6-10.3); Carbon Dioxide 22 mmol/L (21-32); Chloride 113 mmol/L (98-107); Est GFR (African American) 143.4 ml/min; Est GFR (Non-African American) 123.7 ml/min; Globulin 2.8 gm/dl (2.5-4.0); Glucose 105 mg/dl (70-99(Fasting)); Lipase 15 U/L (11-82); Potassium 4.2 mmol/L (3.5-5.1); Sodium 142 mmol/L (136-145); Total Protein 6.1 gm/dl (6.0-8.3)
[2022-06-27 18:16] LABS: Troponin I High Sensitivity 6.5 pg/ml (0-14)
[2022-06-27 19:09] LABS: D Dimer 4450 ug/L FEU (0-500)
[2022-06-27] MEDS ORDERED: OPTIRAY 320 500ml IV ONE (20:24)
--- NOTE | 2022-06-27 21:03 | CT Scan Report ---
Exam(s): CTA CHEST IV Amt: 115 mL [id number] EXAM: CT Angiography Chest With Intravenous Contrast CLINICAL HISTORY: Reason for exam: PE. TECHNIQUE: Axial computed tomographic angiography images of the chest with intravenous contrast. CTDI is 24.57 mGy and DLP is 688.88 mGy-cm. Automated exposure control was utilized for the study. A dose lowering technique was utilized adhering to the principles of ALARA. MIP reconstructed images were created and reviewed. COMPARISON: No relevant prior studies available. FINDINGS: Pulmonary arteries: Unremarkable. No acute pulmonary embolism. Aorta: No acute findings. No thoracic aortic aneurysm. Lungs: Unremarkable. No mass. No consolidation. Pleural space: Trace bilateral pleural effusions. Mildly prominent heart size. No pericardial effusion. Correlate for congestive heart failure. No pneumothorax. Heart: Unremarkable. No cardiomegaly. No significant pericardial effusion. No evidence of RV dysfunction. Thyroid: Enlarged thyroid gland, which should be correlated with thyroid ultrasound. Bones/joints: No acute fracture. No dislocation. Soft tissues: Unremarkable. Lymph nodes: Unremarkable. No enlarged lymph nodes. IMPRESSION: 1. No acute pulmonary embolism. 2. Trace bilateral pleural effusions. Mildly prominent heart size. No pericardial effusion. Correlate for congestive heart failure. 3. Enlarged thyroid gland, which should be correlated with thyroid ultrasound. Electronically signed by: Francisco Javier Eller MD 06/27/22 21:01 PM
[2022-06-27] MEDS ORDERED: hydrALAZINE HCL 20 MG/ML VIAL IV ONE (21:50)
[2022-06-27 23:03] LABS: Appearance Urine Clear (Clear); Bacteria Urine Automated 4+ (Negative); Bilirubin Urine Negative (Negative); Blood Urine 2+ (Negative); Cast Urine Automated 0 /lpf (0-5); Color Urine Yellow; Epithelial Cell Urine Auto 0-5 /lpf (0-5); Glucose Urine UA Negative (Negative); Ketones Urine Negative (Negative); Leukocyte Esterase Urine 2+ (Negative); Nitrite Urine Negative (Negative); Protein Urine Negative (Negative); Specific Gravity Urine 1.025 (1.000-1.030); Urobilinogen Urine Negative (Negative); pH Urine 7.5 (4.5-7.5)
[2022-06-27 23:16] LABS: Total Protein Urine Random 7.9 mg/dl (0-11.9)
[2022-06-27 23:22] LABS: Creatinine Urine Random 24.4 mg/dl; Protein Creatinine Ratio Urine 0.3 (0-0.2)
[2022-06-28] MEDS ORDERED: MAGNESIUM SULFATE 40GM / WTR 1,000 ML BAG IV ONE (00:09)
[2022-06-28] MEDS ORDERED: HYDROCORTISONE HC 2.5% CRM 30GM TUBE EXT PRN (00:10)
[2022-06-28] MEDS ORDERED: MAG SULFATE 4GM BOLUS FROM BAG IV ONE (00:10)
--- NOTE | 2022-06-28 00:23 | History & Physical Report ---
Date of Service June 28, 2022 Assessment & Plan (1) HTN (hypertension): Plan: Will start Magnesium sulfate. Apresaline for BP. (2) Shortness of breath: (3) Pre-eclampsia affecting puerperium: Admission and Anticipated Discharge Date Admission Date: June 27, 2022 History of Present Illness Chief Complaint: shortness of breath Primary Care Provider: Caio Oliveira MD 32 F P1001 s/p 06/19/22 at [facility] uncomplicated presents to ER with shortness of breath and right sided chest pain. Denies headache, visual changes or any nausea or vomiting. Breast feeding and oterhwise has had normal course while at home. Allergies Allergy/AdvReac Type Severity Reaction Status Date / Time No Known Allergies Allergy Unverified 06/27/22 17:08 Home Medications Medication Instructions Recorded Confirmed Type acetaminophen 325 mg tablet 650 mg PO Q6H #60 tabs 06/22/22 06/27/22 Rx docusate sodium 100 mg capsule 100 mg PO DAILY@08,21 #60 caps 06/22/22 06/27/22 Rx hydrocortisone 2.5 % topical cream 1 applic EXT Q8 PRN hemorrhoids 06/22/22 06/27/22 Rx with perineal applicator #30 grams (Proctosol HC) ibuprofen 600 mg tablet 600 mg PO Q6 #40 tabs 06/22/22 06/27/22 Rx vits no.124-ferrous fum 1 tab PO DAILY@08 #90 tabs 06/22/22 06/27/22 Rx 27 mg iron-folic acid 800 mcg tablet ( Vitamin) Patient History Medical History Gestational diabetes diet controlled No known health problems Surgical History No history of previous surgery Family History Other Family history of diabetes mellitus in father Social History Smoking Status: Never smoker Hx Alcohol Use: No Hx Substance Use: No Preferred Language: Other Communication Ability: Impaired Communication Tools: Language Line Systems Design Engineer Visual Impairment: No Limitations Systems Design Engineer Required: Yes Beliefs That Will Affect Care: None marital status: Current Living Situation: Spouse and Family Current Living Situation Comment: lives with family Feels Safe at Home: Yes Diet: diabetic Assistive Devices: None 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 History neg Review of Systems All systems reviewed & are unremarkable except as noted in HPI & below Physical Exam Constitutional: WD/WN, vitals as above Eyes: PERRL, conjunctivae normal, anicteric sclerae Respiratory: normal respiratory effort, lungs clear to auscultation Gastrointestinal (Abdomen): Inspection/Auscultation: abdomen normal to inspection Musculoskeletal: Extremities: extremities normal to inspection Skin: no rashes, warm and dry Neurologic: patellar DTR's 2+ bilat, sensation intact Psychiatric: A+Ox3, euthymic affect Results & Data Vital Signs (Past 12 Hours) Vital Signs Temp Pulse Pulse Resp BP BP Pulse Ox 06/27/22 22:51 174/101 H 06/27/22 22:01 59 L 174/104 H 98 06/27/22 19:07 60 28 H 172/102 H 98 06/27/22 17:37 68 06/27/22 16:45 36.8 C 64 20 148/95 H 99 O2 Del Method 06/27/22 22:51 06/27/22 22:01 06/27/22 19:07 Room Air 06/27/22 17:37 06/27/22 16:45 Room Air Laboratory Results 06/27/22 06/27/22 06/27/22 17:18 17:18 17:18 WBC 6.92 RBC 3.85 L Hgb 10.9 L Hct 34.2 L MCV 88.8 MCH 28.3 MCHC 31.9 L RDW Std Deviation 54.6 H RDW Coeff of Rosmery 17.0 H Plt Count 363 MPV 11.1 Immature Gran % (Auto) 0.3 Neut % (Auto) 60.7 Lymph % (Auto) 29.3 [place] % (Auto) 8.7 Eos % (Auto) 0.9 Baso % (Auto) 0.1 Neut # (Auto) 4.20 Lymph # (Auto) 2.03 [place] # (Auto) 0.60 H Eos # (Auto) 0.06 Baso # (Auto) 0.01 Immature Gran # (Auto) 0.02 D-Dimer 4450 H* Sodium 142 Potassium 4.2 Chloride 113 H Carbon Dioxide 22 Anion Gap 7 BUN 10 Creatinine 0.58 L Est Cr Clr Drug Dosing Not Reportable Est GFR ( Amer) 143.4 Est GFR (Non-Af Amer) 123.7 BUN/Creatinine Ratio 17.2 Glucose 105 H Calcium 8.7 Total Bilirubin 0.2 AST 51 H ALT 131 H Alkaline Phosphatase 131 H Troponin I High Sens 6.5 Total Protein 6.1 Albumin 3.3 L Globulin 2.8 Albumin/Globulin Ratio 1.2 Lipase 15 Urine Color Urine Appearance Urine pH Ur Specific [place] Urine Protein Urine Glucose (UA) Urine Ketones Urine Blood Urine Nitrite Urine Bilirubin Urine Urobilinogen Ur Leukocyte Esterase Urine WBC (Auto) Urine RBC (Auto) U Hyaline Cast (Auto) U Epithel Cells (Auto) Urine Bacteria (Auto) Ur Random Creatinine U Random Total Protein Protein/Creatinin Ratio SARS-CoV-2, RNA, NAAT 06/27/22 06/27/22 06/27/22 21:59 22:50 22:50 WBC RBC Hgb Hct MCV MCH MCHC RDW Std Deviation RDW Coeff of Rosmery Plt Count MPV Immature Gran % (Auto) Neut % (Auto) Lymph % (Auto) [place] % (Auto) Eos % (Auto) Baso % (Auto) Neut # (Auto) Lymph # (Auto) [place] # (Auto) Eos # (Auto) Baso # (Auto) Immature Gran # (Auto) D-Dimer Sodium Potassium Chloride Carbon Dioxide Anion Gap BUN Creatinine Est Cr Clr Drug Dosing Est GFR ( Amer) Est GFR (Non-Af Amer) BUN/Creatinine Ratio Glucose Calcium Total Bilirubin AST ALT Alkaline Phosphatase Troponin I High Sens Total Protein Albumin Globulin Albumin/Globulin Ratio Lipase Urine Color Yellow Urine Appearance Clear Urine pH 7.5 Ur Specific [place] 1.025 Urine Protein Negative Urine Glucose (UA) Negative Urine Ketones Negative Urine Blood 2+ H Urine Nitrite Negative Urine Bilirubin Negative Urine Urobilinogen Negative Ur Leukocyte Esterase 2+ H Urine WBC (Auto) 10-30 H Urine RBC (Auto) 5-10 H U Hyaline Cast (Auto) 0 U Epithel Cells (Auto) 0-5 Urine Bacteria (Auto) 4+ H Ur Random Creatinine 24.4 U Random Total Protein 7.9 Protein/Creatinin Ratio 0.3 H SARS-CoV-2, RNA, NAAT NEGATIVE Code Status & VTE Plan VTE Prophylaxis Plan VTE Prophylaxis will be ordered: No
[2022-06-28] MEDS: LACTATED RINGER'S 1,000 ML IV PRN ×2 (00:38→13:22)
[2022-06-28] MEDS ORDERED: hydrALAZINE HCL 20 MG/ML VIAL IV ONE (00:52)
[2022-06-28] MEDS: ACETAMINOPHEN 325 MG TAB PO SCH ×3 (01:13→13:54)
[2022-06-28] MEDS: IBUPROFEN 600 MG TAB PO SCH ×3 (01:17→13:32)
[2022-06-28] MEDS: MAGNESIUM SULFATE / WTR 40 GM/1,000 ML BAG IV SCH ×2 (01:19→18:07)
[2022-06-28] MEDS: LABETALOL HCL 100 MG TAB PO SCH ×2 (05:58→20:45)
[2022-06-28 06:41] LABS: Basophils # (auto) 0.01 K/uL (0-0.2); Basophils % (auto) 0.2 %; Eosinophils # (auto) 0.04 K/uL (0-0.50); Eosinophils % (auto) 0.6 %; Hematocrit (blood only) 36.3 % (37.0-47.0); Hemoglobin 11.7 g/dl (12.0-16.0); Immature Granulocytes # (auto) 0.03 K/uL (0.01-0.20); Immature Granulocytes % (auto) 0.5 %; Lymphocytes # (auto) 1.78 K/uL (1.2-3.4); Mean Corpuscular Hemoglobin 28.4 pg (25.0-34.0); Mean Corpuscular Hgb Conc 32.2 g/dL (32.0-36.0); Mean Corpuscular Volume 88.1 fL (80.0-100.0); Mean Platelet Volume 10.4 fL (9.4-12.4); Monocytes # (auto) 0.48 K/uL (0.11-0.59); Monocytes % (auto) 7.3 %; Neutrophils # (auto) 4.26 K/uL (1.40-6.50); Neutrophils % (auto) 64.4 %; Platelet Count 376 K/uL (130-400); RDW Standard Deviation 54.6 fL (36.4-46.3); Red Blood Count 4.12 M/uL (4.20-5.40)
[2022-06-28 06:49] LABS: Albumin Level 3.2 gm/dl (3.4-5.0); Bilirubin Direct 0.1 mg/dl (0-0.2); Bilirubin,Total 0.3 mg/dl (0.2-1.0); Magnesium Therapeutic L&D Only 4.7 mg/dL (4.0-8.0)
[2022-06-28 06:55] LABS: Uric Acid 4.2 mg/dl (2.6-7.2)
[2022-06-28] MEDS: DOCUSATE SODIUM 100 MG CAP PO SCH ×2 (07:34→20:45)
[2022-06-28] MEDS: PRENATAL VITAMIN 1 TAB PO SCH (07:34)
--- NOTE | 2022-06-28 10:11 | Electrocardiogram Report ---
Test Reason : Blood Pressure : / mmHG Vent. Rate : 063 BPM Atrial Rate : 063 BPM P-R Int : 138 ms QRS Dur : 072 ms QT Int : 410 ms P-R-T Axes : 043 069 050 degrees QTc Int : 419 ms Normal sinus rhythm Possible Left atrial enlargement T wave abnormality, consider anterior ischemia Abnormal ECG No previous ECGs available Confirmed by Aristeo Hale ([id number] on 06/28/2022 10:11:20 AM Referred By: Caio Oliveira Confirmed By:Christiano Hale
[2022-06-28] MEDS ORDERED: Nursing to Pharmacy Communication SCH (10:15)
[2022-06-28] MEDS: SULFAMETHOXAZOLE/TRIMETHOPRIM DS 800/160MG TAB PO SCH ×2 (10:45→20:45)
--- NOTE | 2022-06-28 10:47 | Obstetrical Progress Note ---
Date of Service June 28, 2022 Assessment & Plan (1) Pre-eclampsia affecting puerperium: Continue Magnesium for 24 hrs. Anticipate discharge tomorrow AM Subjective Ambulation: limited ambulation Voiding: medina catheter in place Passing Gas:: Yes Diet Tolerance:: clear liquids Lochia:: Small Feeding Type:: breast feeding Current Pain Level(1-10): 0 doing well Physical Exam Constitutional WD/WN, vitals as above Skin no rashes, warm and dry Neurologic patellar DTR's 2+ bilat, sensation intact Psychiatric A+Ox3, euthymic affect Results & Data Vital Signs (Past 12 Hours) Vital Signs Temp Pulse Resp BP BP Pulse Ox O2 Del Method 06/28/22 09:00 18 06/28/22 08:00 20 06/28/22 08:00 36.8 C 20 Room Air 06/28/22 06:10 20 06/28/22 04:45 06/28/22 03:45 06/28/22 02:45 22 06/28/22 02:17 06/28/22 01:47 18 06/28/22 01:32 18 06/28/22 01:17 06/28/22 01:02 06/28/22 00:47 16 06/28/22 01:49 36.9 C 80 18 140/88 96 Room Air 06/28/22 01:02 157/92 H 06/27/22 22:51 174/101 H Laboratory Results Laboratory Results - last 72 hr 06/27/22 06/27/22 06/27/22 17:18 17:18 17:18 WBC 6.92 RBC 3.85 L Hgb 10.9 L Hct 34.2 L MCV 88.8 MCH 28.3 MCHC 31.9 L RDW Std Deviation 54.6 H RDW Coeff of Rosmery 17.0 H Plt Count 363 MPV 11.1 Immature Gran % (Auto) 0.3 Neut % (Auto) 60.7 Lymph % (Auto) 29.3 [place] % (Auto) 8.7 Eos % (Auto) 0.9 Baso % (Auto) 0.1 Neut # (Auto) 4.20 Lymph # (Auto) 2.03 [place] # (Auto) 0.60 H Eos # (Auto) 0.06 Baso # (Auto) 0.01 Immature Gran # (Auto) 0.02 D-Dimer 4450 H* Sodium 142 Potassium 4.2 Chloride 113 H Carbon Dioxide 22 Anion Gap 7 BUN 10 Creatinine 0.58 L Est Cr Clr Drug Dosing Not Reportable Est GFR ( Amer) 143.4 Est GFR (Non-Af Amer) 123.7 BUN/Creatinine Ratio 17.2 Glucose 105 H Uric Acid Calcium 8.7 Magnesium (Sulf Ther) Total Bilirubin 0.2 Direct Bilirubin AST 51 H ALT 131 H Alkaline Phosphatase 131 H Lactate Dehydrogenase Troponin I High Sens 6.5 Total Protein 6.1 Albumin 3.3 L Globulin 2.8 Albumin/Globulin Ratio 1.2 Lipase 15 Urine Color Urine Appearance Urine pH Ur Specific [place] Urine Protein Urine Glucose (UA) Urine Ketones Urine Blood Urine Nitrite Urine Bilirubin Urine Urobilinogen Ur Leukocyte Esterase Urine WBC (Auto) Urine RBC (Auto) U Hyaline Cast (Auto) U Epithel Cells (Auto) Urine Bacteria (Auto) Ur Random Creatinine U Random Total Protein Protein/Creatinin Ratio SARS-CoV-2, RNA, NAAT 06/27/22 06/27/22 06/27/22 21:59 22:50 22:50 WBC RBC Hgb Hct MCV MCH MCHC RDW Std Deviation RDW Coeff of Rosmery Plt Count MPV Immature Gran % (Auto) Neut % (Auto) Lymph % (Auto) [place] % (Auto) Eos % (Auto) Baso % (Auto) Neut # (Auto) Lymph # (Auto) [place] # (Auto) Eos # (Auto) Baso # (Auto) Immature Gran # (Auto) D-Dimer Sodium Potassium Chloride Carbon Dioxide Anion Gap BUN Creatinine Est Cr Clr Drug Dosing Est GFR ( Amer) Est GFR (Non-Af Amer) BUN/Creatinine Ratio Glucose Uric Acid Calcium Magnesium (Sulf Ther) Total Bilirubin Direct Bilirubin AST ALT Alkaline Phosphatase Lactate Dehydrogenase Troponin I High Sens Total Protein Albumin Globulin Albumin/Globulin Ratio Lipase Urine Color Yellow Urine Appearance Clear Urine pH 7.5 Ur Specific [place] 1.025 Urine Protein Negative Urine Glucose (UA) Negative Urine Ketones Negative Urine Blood 2+ H Urine Nitrite Negative Urine Bilirubin Negative Urine Urobilinogen Negative Ur Leukocyte Esterase 2+ H Urine WBC (Auto) 10-30 H Urine RBC (Auto) 5-10 H U Hyaline Cast (Auto) 0 U Epithel Cells (Auto) 0-5 Urine Bacteria (Auto) 4+ H Ur Random Creatinine 24.4 U Random Total Protein 7.9 Protein/Creatinin Ratio 0.3 H SARS-CoV-2, RNA, NAAT NEGATIVE 06/28/22 06/28/22 06/28/22 06:18 06:18 06:18 WBC 6.60 RBC 4.12 L Hgb 11.7 L Hct 36.3 L MCV 88.1 MCH 28.4 MCHC 32.2 RDW Std Deviation 54.6 H RDW Coeff of Rosmery 17.0 H Plt Count 376 MPV 10.4 Immature Gran % (Auto) 0.5 Neut % (Auto) 64.4 Lymph % (Auto) 27.0 [place] % (Auto) 7.3 Eos % (Auto) 0.6 Baso % (Auto) 0.2 Neut # (Auto) 4.26 Lymph # (Auto) 1.78 [place] # (Auto) 0.48 Eos # (Auto) 0.04 Baso # (Auto) 0.01 Immature Gran # (Auto) 0.03 D-Dimer Sodium Potassium Chloride Carbon Dioxide Anion Gap BUN Creatinine Est Cr Clr Drug Dosing Est GFR ( Amer) Est GFR (Non-Af Amer) BUN/Creatinine Ratio Glucose Uric Acid 4.2 Calcium Magnesium (Sulf Ther) 4.7 Total Bilirubin 0.3 Direct Bilirubin 0.1 AST 38 ALT 112 H Alkaline Phosphatase 133 H Lactate Dehydrogenase 216 Troponin I High Sens Total Protein 6.0 Albumin 3.2 L Globulin Albumin/Globulin Ratio Lipase Urine Color Urine Appearance Urine pH Ur Specific [place] Urine Protein Urine Glucose (UA) Urine Ketones Urine Blood Urine Nitrite Urine Bilirubin Urine Urobilinogen Ur Leukocyte Esterase Urine WBC (Auto) Urine RBC (Auto) U Hyaline Cast (Auto) U Epithel Cells (Auto) Urine Bacteria (Auto) Ur Random Creatinine U Random Total Protein Protein/Creatinin Ratio SARS-CoV-2, RNA, NAAT
[2022-06-28] MEDS ORDERED: ACETAMINOPHEN 325 MG TAB PO PRN (14:55)
[2022-06-28] MEDS: IBUPROFEN 600 MG TAB PO PRN (20:45)
[2022-06-28] MEDS ORDERED: SULFAMETHOXAZOLE/TRIMETHOPRIM DS 800/160MG TAB PO SCH (21:00)
[2022-06-29 06:34] LABS: Albumin Globulin Ratio 1.2 (0.9-2); Albumin Level 3.3 gm/dl (3.4-5.0); BUN Creatinine Ratio 7.2 (10-20); Bilirubin Direct 0.1 mg/dl (0-0.2); Bilirubin,Total 0.3 mg/dl (0.2-1.0); Calcium 7.5 mg/dl (8.6-10.3); Creatinine Clr Calc Pharmacy 110.4 ml/min; Est GFR (African American) 109.7 ml/min; Est GFR (Non-African American) 94.6 ml/min; Globulin 2.8 gm/dl (2.5-4.0); Magnesium Therapeutic L&D Only 3.6 mg/dL (4.0-8.0); Potassium 4.1 mmol/L (3.5-5.1); Total Protein 6.1 gm/dl (6.0-8.3); Uric Acid 3.9 mg/dl (2.6-7.2)
[2022-06-29] MEDS: LABETALOL HCL 100 MG TAB PO SCH (08:52)
[2022-06-29] MEDS: PRENATAL VITAMIN 1 TAB PO SCH (08:52)
[2022-06-29] MEDS: DOCUSATE SODIUM 100 MG CAP PO SCH (08:52)
[2022-06-29] MEDS: SULFAMETHOXAZOLE/TRIMETHOPRIM DS 800/160MG TAB PO SCH (08:53)
[2022-06-29] MEDS: IBUPROFEN 600 MG TAB PO PRN (08:53)
--- NOTE | 2022-06-29 09:09 | Obstetrical Progress Note ---
Date of Service June 29, 2022 Assessment & Plan Admission and Anticipated Discharge Date Admission Date: June 27, 2022 Subjective Patient is seen and examined. She feels well, no complaints. Wants to be discharged. Ambulating without dizziness Voiding without difficulty Tolerating regular diet with out N&V Bleeding is minimal No fever/ chills/ CP/ SOB/ N&V/ Leg pain No BRUCE/ Change in vision/ epigastric or RUQ pain Off Magnesium since MN Vital Signs Temp Pulse Resp BP Pulse Ox 06/29/22 08:46 37.0 C 20 06/29/22 05:00 37.1 C 72 18 123/71 97 06/29/22 05:00 18 06/29/22 01:30 36.8 C 76 18 121/80 96 06/29/22 01:30 18 06/29/22 00:00 16 06/28/22 23:00 18 06/28/22 22:00 18 98 06/28/22 22:00 18 06/29/22 08:22 80 128/76 06/29/22 04:59 75 123/71 06/29/22 01:18 76 121/80 06/29/22 01:11 75 96 06/29/22 01:06 84 97 06/29/22 01:01 82 96 06/29/22 00:59 82 94 06/29/22 00:56 78 96 06/29/22 00:51 78 93 06/29/22 00:46 75 97 06/29/22 00:41 75 96 06/29/22 00:36 75 95 06/29/22 00:31 80 96 06/29/22 00:26 75 96 06/29/22 00:21 75 96 06/29/22 00:16 74 96 06/29/22 00:11 83 97 06/29/22 00:06 80 96 06/29/22 00:01 80 96 06/28/22 23:56 90 96 06/28/22 23:51 80 96 06/28/22 23:46 81 97 06/28/22 23:41 83 97 06/28/22 23:36 80 97 06/28/22 23:31 79 96 06/28/22 23:26 76 96 06/28/22 23:21 76 97 06/28/22 23:16 78 96 06/28/22 23:11 77 97 06/28/22 23:06 83 96 06/28/22 23:01 75 96 06/28/22 22:56 74 96 06/28/22 22:51 77 96 06/28/22 22:46 81 95 06/28/22 22:41 85 96 06/28/22 22:38 77 113/62 06/28/22 22:36 93 H 96 06/28/22 22:31 82 96 06/28/22 22:26 79 96 06/28/22 22:21 86 96 06/28/22 22:16 78 96 06/28/22 22:11 79 96 06/28/22 22:06 84 96 06/28/22 22:01 80 96 06/28/22 21:56 83 96 06/28/22 21:52 80 94 06/28/22 21:51 80 95 06/28/22 21:46 78 96 06/28/22 21:41 80 95 06/28/22 21:36 79 96 06/28/22 21:31 80 96 06/28/22 21:26 78 95 06/28/22 21:21 82 95 06/28/22 21:16 82 95 06/28/22 21:11 90 97 06/28/22 21:06 86 96 06/29/22 06/29/22 Range/Units 06:00 06:00 Sodium 140 (136-145) mmol/L Potassium 4.1 (3.5-5.1) mmol/L Chloride 108 H (98-107) mmol/L Carbon Dioxide 25 (21-32) mmol/L Anion Gap 7 (3-11) BUN 6 (6-23) mg/dl Creatinine 0.83 (0.6-1.2) mg/dl Est Cr Clr Drug Dosing 110.4 ml/min Est GFR ( Amer) 109.7 ml/min Est GFR (Non-Af Amer) 94.6 ml/min BUN/Creatinine Ratio 7.2 L (10-20) Glucose 90 (70-99(Fasting)) mg/dl Uric Acid 3.9 (2.6-7.2) mg/dl Calcium 7.5 L (8.6-10.3) mg/dl Magnesium (Sulf Ther) 3.6 L (4.0-8.0) mg/dL Total Bilirubin 0.3 (0.2-1.0) mg/dl Direct Bilirubin 0.1 (0-0.2) mg/dl AST 29 (13-39) U/L ALT 92 H (7-52) U/L Alkaline Phosphatase 131 H (34-104) U/L Lactate Dehydrogenase 250 H (86-244) U/L Total Protein 6.1 (6.0-8.3) gm/dl Albumin 3.3 L (3.4-5.0) gm/dl Globulin 2.8 (2.5-4.0) gm/dl Albumin/Globulin Ratio 1.2 (0.9-2) PE: General: Alert, orientedx3, NAD Abd: soft, NT, fundus firm, below Umbilicus Perineum intact, Lochia rubra minimal Ext; NT, no edema AP: 32 yo s/p on 06/20, admitted for preeclampsia, off Magnesium VSS Afebrile doing well Desires d/c Continue routine care All questions were answered D/C home , f/u in office Results & Data Vital Signs (Past 12 Hours) Vital Signs Temp Pulse Resp BP Pulse Ox 06/29/22 08:46 37.0 C 20 06/29/22 05:00 37.1 C 72 18 123/71 97 06/29/22 05:00 18 06/29/22 01:30 36.8 C 76 18 121/80 96 06/29/22 01:30 18 06/29/22 00:00 16 06/28/22 23:00 18 06/28/22 22:00 18 98 06/28/22 22:00 18 06/29/22 08:22 80 128/76 06/29/22 04:59 75 123/71 06/29/22 01:18 76 121/80 06/29/22 01:11 75 96 06/29/22 01:06 84 97 06/29/22 01:01 82 96 06/29/22 00:59 82 94 06/29/22 00:56 78 96 06/29/22 00:51 78 93 06/29/22 00:46 75 97 06/29/22 00:41 75 96 06/29/22 00:36 75 95 06/29/22 00:31 80 96 06/29/22 00:26 75 96 05/18/23 00:21 75 96 051823 00:16 74 96 051823 00:11 83 97 0518 00:06 80 96 0518 00:01 80 96 0517 23:56 90 96 0517 23:51 80 96 05 23:46 81 97 0517 23:41 83 97 0517 23:36 80 97 0517 23:31 79 96 0517 23:26 76 96 0517 23:21 76 97 0517 23:16 78 96 0517 23:11 77 97 0517 23:06 83 96 05 23:01 75 96 05 22:56 74 96 05 22:51 77 96 05 22:46 81 95 0517 22:41 85 96 0517 22:38 77 113/62 0517 22:36 93 H 96 0517 22:31 82 96 0517 22:26 79 96 0517 22:21 86 96 0517 22:16 78 96 05 22:11 79 96 05 22:06 84 96 05 22:01 80 96 0517 21:56 83 96 05 21:52 80 94 0517 21:51 80 95 0517 21:46 78 96 051723 21:41 80 95 051723 21:36 79 96 051723 21:31 80 96 051723 21:26 78 95 051723 21:21 82 95 051723 21:16 82 95 0517 21:11 90 97 0517 21:06 86 96
--- NOTE | 2022-07-07 06:56 | Discharge Summary (DS) ---
DATE OF ADMISSION: 06/27/2022. DATE OF DISCHARGE: 06/29/2022. DETAILS OF ADMISSION: The patient is a 32-year-old G1, P1-0-0-1, who is status post spontaneous vagi nal delivery on 06/19/2022 at [facility], which was uncomplicated. She presented t o the ER on 06/27/2022 evening with shortness of breath and swelling. She denies headaches, change i n her vision, nausea or vomiting. Upon presenting to the ER, her blood pressure was found to be elev ated. Her CT scan was negative for pulmonary embolism and her EKG was normal. She was admitted for hypertension with severe features. She was admitted to OB floor and started on IV magnesi um for seizure prophylaxis. Her blood pressures were improved with antihypertensive medications and she was continued on IV magnesium sulfate for seizure prophylaxis for 24 hours. She was doing well, vital signs stable, afebrile. Blood pressures were under control, within normal limits. She denied headaches, change in her vision, nausea, vomiting. The shortness of breath and chest pain improved d uring admission. Her blood pressures are under control with labetalol 100 mg p.o. b.i.d. and on 06/12, I discharged her with prescriptions as above and she is to be seen in the office in 2 days fo r blood pressure check and home nurse for blood pressure check. All questions were answered. Job ID: [id number]
== END 2022-06-29 10:25 | disposition home or self-care (01) | DRG 776 ==
LOC: ED 16:42 → 4S1 23:20

== ENCOUNTER 2024-09-03 16:41 | Inpatient (IN) ==
[2024-09-03] MEDS: OXYTOCIN 10 UNITS/ML 10ML VIAL IM ONE (16:45)
[2024-09-03] MEDS ORDERED: HYDROCORTISONE ACETATE 25 MG SUPP PR PRN (17:02)
[2024-09-03] MEDS ORDERED: OXYTOCIN 30 UNITS/NSS 30 UNITS/500 ML BAG IV PRN (17:02)
[2024-09-03] MEDS ORDERED: DIPHTHER/TETAN/PERTUS Vaccine (Tdap, Adol/Adult) 0.5mL IM ONE (17:02)
--- NOTE | 2024-09-03 17:08 | History & Physical Report ---
Date of Service September 03, 2024 Assessment & Plan (1) Precipitous delivery, delivered (current hospitalization): Plan: Admit to hospital for observation. IM Oxytocin give. Baby to nursery for observation. Admission and Anticipated Discharge Date Admission Date: September 03, 2024 History of Present Illness Chief Complaint: vaginal delivery in car Primary Care Provider: AVILA PCP 34 F P1001 at 39 weeks presents to hospital with precipitous delivery of liveborn female while in car in front of ER. Dr. Heller went to see her and the baby was out and placenta delivered complete and intact. History of GDM on diet. Allergies Allergy/AdvReac Type Severity Reaction Status Date / Time No Known Allergies Allergy Unverified 06/27/22 17:08 Home Medications Medication Instructions Recorded Confirmed Type acetaminophen 325 mg tablet 650 mg (2 x 325 mg) PO Q6H #60 tabs 06/22/22 06/27/22 Rx docusate sodium 100 mg capsule 100 mg PO DAILY@08,21 #60 caps 06/22/22 06/27/22 Rx hydrocortisone 2.5 % topical cream 1 applic EXT Q8 PRN hemorrhoids 06/22/22 06/27/22 Rx with perineal applicator #30 grams (Proctosol HC) ibuprofen 600 mg tablet 600 mg PO Q6 #40 tabs 06/22/22 06/27/22 Rx vits no.124-ferrous fum 1 tab PO DAILY@08 #90 tabs 06/22/22 06/27/22 Rx 27 mg iron-folic acid 800 mcg tablet ( Vitamin) labetalol 100 mg tablet 100 mg PO BID #60 tabs 06/29/22 Rx sulfamethoxazole 800 1 tab PO Q12 #12 tabs 06/29/22 Rx mg-trimethoprim 160 mg tablet (Bactrim DS) Patient History Medical History Anemia affecting Normal course Encounter for pre-operative examination Active labor at term Gestational diabetes diet controlled GDM (gestational diabetes mellitus) No known health problems Surgical History No history of previous surgery Family History Other Family history of diabetes mellitus in father Social History Smoking Status: Never smoker Hx Alcohol Use: Yes (Before pragnancy) Hx Substance Use: No Preferred Language: [place] Communication Ability: Effective Communication Tools: Language Line 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 small introital tear noted and not bleeding. No stitches needed. Results & Data Vital Signs (Past 12 Hours) Vital Signs Pulse BP 09/03/24 16:56 72 125/78 Code Status & VTE Plan VTE Prophylaxis Plan VTE Prophylaxis will be ordered: No
[2024-09-03 17:16] VITALS: RESP 16
[2024-09-03 17:37] LABS: Hematocrit (blood only) 37.3 % (37.0-47.0); Hemoglobin 12.3 g/dl (12.0-16.0); Mean Corpuscular Hemoglobin 28.6 pg (25.0-34.0); Mean Corpuscular Volume 86.7 fL (80.0-100.0); Platelet Count 251 K/uL (130-400); RDW Standard Deviation 48.8 fL (36.4-46.3); Red Blood Count 4.30 M/uL (4.20-5.40); White Blood Count 8.74 K/ul (4.8-10.8)
[2024-09-03] MEDS: IBUPROFEN 600 MG TAB PO PRN (18:15)
[2024-09-03] MEDS: HYDROCORTISONE HC 2.5% CRM 30GM TUBE EXT PRN (18:16)
[2024-09-03] MEDS: BENZOCAINE 20% SPRY 85 APPLN/85 GM CAN EXT PRN (18:16)
[2024-09-03] MEDS: DOCUSATE SODIUM 100 MG CAP PO SCH (21:51)
[2024-09-04] MEDS: PRENATAL VITAMIN 1 TAB PO SCH (07:15)
[2024-09-04] MEDS: FERROUS SULFATE 325 MG TAB PO SCH (07:15)
--- NOTE | 2024-09-04 09:21 | Obstetrical Progress Note ---
Date of Service September 04, 2024 Assessment & Plan Admission and Anticipated Discharge Date Admission Date: September 03, 2024 Subjective Patient is seen and examined. She feels well, no complaints. Ambulating without dizziness Voiding without difficulty Tolerating regular diet with out N&V Bleeding is minimal No fever/ chills/ CP/ SOB/ N&V/ Leg pain Breast and bottle feeding without problems Lab Results 09/03/24 Range/Units 17:13 WBC 8.74 (4.8-10.8) K/ul RBC 4.30 (4.20-5.40) M/uL Hgb 12.3 (12.0-16.0) g/dl Hct 37.3 (37.0-47.0) % MCV 86.7 (80.0-100.0) fL MCH 28.6 (25.0-34.0) pg MCHC 33.0 (32.0-36.0) g/dL RDW Std Deviation 48.8 H (36.4-46.3) fL RDW Coeff of Rosmery 15.3 H (11.5-14.5) % Plt Count 251 (130-400) K/uL MPV 11.1 (9.4-12.4) fL Treponema pallidum Ab Negative (Negative) Vital Signs Temp Pulse Resp BP Pulse Ox O2 Del Method 09/04/24 07:25 36.6 C 79 16 98/65 L 98 Room Air 09/04/24 03:45 36.7 C 75 16 97/62 L Room Air 09/04/24 00:00 36.6 C 66 16 112/71 99 Room Air PE: General: Alert, orientedx3, NAD Abd: soft, NT, fundus firm, below Umbilicus Perineum intact, Lochia rubra minimal Ext; NT, no edema AP: 34 yo s/p , ppd# 1, precipitous delivery VSS Afebrile doing well Continue routine care All questions were answered Desires d/c tonight D/C home , f/u in office Results & Data Vital Signs (Past 12 Hours) Vital Signs Temp Pulse Resp BP Pulse Ox O2 Del Method 09/04/24 07:25 36.6 C 79 16 98/65 L 98 Room Air 09/04/24 03:45 36.7 C 75 16 97/62 L Room Air 09/04/24 00:00 36.6 C 66 16 112/71 99 Room Air
[2024-09-04 11:18] LABS: Hematocrit (blood only) 32.1 % (37.0-47.0); Hemoglobin 10.8 g/dl (12.0-16.0); Mean Corpuscular Hemoglobin 29.1 pg (25.0-34.0); Mean Corpuscular Volume 86.5 fL (80.0-100.0); Platelet Count 240 K/uL (130-400); RDW Standard Deviation 48.5 fL (36.4-46.3); Red Blood Count 3.71 M/uL (4.20-5.40); White Blood Count 9.52 K/ul (4.8-10.8)
[2024-09-04] MEDS: OXYTOCIN 10 UNITS/ML VIAL ONE (11:22)
[2024-09-04 16:41] VITALS: BP 117/73; PULSE 82; TEMP 98.4; O2SAT 98
[2024-09-04] MEDS: ACETAMINOPHEN 325 MG TAB PO PRN (16:53)
== END 2024-09-04 19:35 | disposition home health service (06) | DRG 776 ==
LOC: 4S1 16:41 → 4E2 19:17